=== PATIENT | male | born 1970 | race Two or more races ===

== ENCOUNTER → 2023-12-29 | Outpatient (CLI) | payer OTHER | END | disposition home or self-care (01) | LOC: SHCH 11:01 | PROVIDERS: ATTEND Student in an Organized Health Care Education/Training Program | DX: R00.2 Palpitations (principal) | CPT/HCPCS: 93306 ==

== ENCOUNTER → 2024-02-09 | Outpatient (CLI) | payer OTHER ==
[~2024-02-09] MED LIST: IOHEXOL 350 MG/ML 100ML INFUS..BTL IV ONE; metoPROLOL tartRATE 1 MG/ML 5ML VIAL IV ONE
== END | disposition home or self-care (01) ==
LOC: RAH 13:28 → EEVIPCON 13:28
PROVIDERS: ATTEND Student in an Organized Health Care Education/Training Program
DX: I25.10 Atherosclerotic heart disease of native coronary artery without angina pectoris (principal); I10 Essential (primary) hypertension; R07.9 Chest pain, unspecified
CPT/HCPCS: 75574; J3490; Q9967

== ENCOUNTER 2024-04-13 06:13 | Day surgery (SDC) | payer OTHER ==
[2024-04-10 14:36] VITALS: BP 123/97; PULSE 64; RESP 18; TEMP 98.1
[2024-04-10 14:57] LABS: BASOPHILS # (AUTO) 0.09 K/uL (0.00-0.20); BASOPHILS % (AUTO) 1.3 % (0.0-5.0); EOSINOPHILS # (AUTO) 0.11 K/uL (0.00-0.70); EOSINOPHILS % (AUTO) 1.6 % (0.0-8.0); IMMATURE GRANULOCYTE ABSOLUTE 0.03 K/uL (0-1); LYMPHOCYTES # (AUTO) 2.8 K/uL (1.0-4.8); LYMPHOCYTES % (AUTO) 40.8 % (21.0-51.0); MEAN CORPUSCULAR HEMOGLOBIN 30.5 pg (27.0-33.0); MEAN CORPUSCULAR HGB CONC 33.8 g/dL (32.0-36.0); MEAN CORPUSCULAR VOLUME 90.2 fL (79-99); MONOCYTES # (AUTO) 0.8 K/uL (0.1-1.0); MONOCYTES % (AUTO) 11.7 % (3.0-13.0); NEUTROPHILS # (AUTO) 3.1 K/uL (1.8-7.7); NEUTROPHILS % (AUTO) 44.2 % (40.0-77.0); PLATELET COUNT (AUTO) 253 K/uL (130-400); RED BLOOD CELL COUNT(AUTO) 5.21 MIL/uL (4.50-6.20); RED CELL DISTRIBUTION WIDTH 12.5 % (11.0-15.5); WHITE BLOOD COUNT (AUTO) 6.9 K/uL (4.8-10.8)
[2024-04-10 15:04] LABS: CREATININE 1.2 mg/dL (0.5-1.3); POTASSIUM 4.9 mmol/L (3.5-5.1)
[2024-04-10 15:08] LABS: INR 0.94 (0.85-1.15); PROTHROMBIN TIME 10.6 SEC (9.6-11.6)
[2024-04-10 15:09] LABS: PARTIAL THROMBOPLASTIN TIME 28.5 SEC (26.3-35.5)
--- NOTE | 2024-04-10 15:13 | HMCIMG ---
CHEST 1VW REASON: PRE OP COMPARISON: None. FINDINGS: Single view of the chest was obtained. Lungs are clear. Heart size is normal. There is no pulmonary vascular congestion. Mediastinum and bony thorax appear unremarkable. IMPRESSION: 1. Normal single view chest x-ray.
[2024-04-10 15:28] LABS: B-TYPE NATRIURETIC PEPTIDE 15 pg/mL (0-100)
--- NOTE | 2024-04-11 05:06 | EKG ---
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
[2024-04-13] VITALS (10 sets, daily range): BP systolic 119–142; BP diastolic 72–90; PULSE 54–77; RESP 14–16; TEMP 98–98.4
[~2024-04-13] VITALS: Ht 180.3 cm; Wt 91.6 kg
[~2024-04-13 06:13] MED LIST changes: +ASPI-1443 PO; -IOHEXOL 350 MG/ML 100ML INFUS..BTL IV ONE; -metoPROLOL tartRATE 1 MG/ML 5ML VIAL IV ONE
[2024-04-13 07:23] LABS: APPEARANCE,URINE CLEAR (CLEAR); BILIRUBIN,URINE NEGATIVE (NEGATIVE); COLOR,URINE LIGHT-YELLOW (YELLOW); GLUCOSE, URINE (UA) NEGATIVE (NEGATIVE); KETONES,URINE NEGATIVE (NEGATIVE); LEUKOCYTE ESTERASE ,URINE NEGATIVE Leu/uL (NEGATIVE); NITRATE,URINE NEGATIVE (NEGATIVE); OCCULT BLOOD,URINE NEGATIVE (NEGATIVE); PROTEIN,URINE 10 mg/dL (NEGATIVE); UROBILINOGEN,URINE 0.2 mg/dL (0.2-1.0)
[2024-04-13 07:25] LABS: ADD UA MICROSCOPIC YES
[2024-04-13 08:01] LABS: MUCUS,URINE RARE LPF (None Seen); RBC,URINE 0-1 /HPF (0-1); SQUAMOUS EPITHELIAL CELL,UR RARE /HPF (0-2); WBC,URINE 0-1 /HPF (0-1)
[2024-04-13] MEDS: 0.9%NACL 1000ML 1,000 ML IV SCH (08:47)
[2024-04-13] MEDS ORDERED: IOHEXOL-350 75 ML VIAL IV ONE (09:19)
[2024-04-13] MEDS ORDERED: HEParin 10,000 UNIT/10ML (1,000 UNIT/ML) VIAL ONE (09:19)
[2024-04-13] MEDS ORDERED: MIDAZOLAM HCL 1 MG/ML 2ML VIAL ONE ×2 (09:19→09:47)
[2024-04-13] MEDS ORDERED: LIDOCAINE HCL 400MG/20ML VIAL ONE (09:19)
[2024-04-13] MEDS ORDERED: FENTanyl CITRate PF 50 MCG/1 ML 2ML VIAL ONE (09:19)
[2024-04-13] MEDS ORDERED: VERAPAMIL HCL 2.5 MG/ML VIAL ONE (09:19)
[2024-04-13] MEDS ORDERED: NITROGLYCERIN 50MG VIAL ONE (09:20)
[2024-04-13] MEDS ORDERED: HEParin-NS 1,000 UNIT/500 ML 1,000 ML IV ONE (09:20)
[2024-04-13] MEDS ORDERED: cloPIDOgrel 300MG TAB ONE (10:16)
[2024-04-13] MEDS ORDERED: ASPIRIN 81MG CHEW TAB ONE (10:16)
[2024-04-13] MEDS ORDERED: EPTIFIBATIDE 2 MG/ML 10 ML VIAL IVP ONE (10:19)
[2024-04-13] MEDS ORDERED: EPTIFIBATIDE 75MG/100ML BOTTLE 100 ML IV ONE (10:19)
[2024-04-13] MEDS ORDERED: HEParin-NS 1,000 UNIT/500 ML 500 ML IV ONE (10:29)
[2024-04-13] MEDS ORDERED: ATROPINE 1MG SYG IVP ONE (10:57)
[2024-04-13] MEDS ORDERED: GLUCAGON 1MG KIT 1 MG ML IM PRN (11:30)
[2024-04-13] MEDS ORDERED: DEXTROSE 50%-WATER 50 ML DISP.SYRIN IV PRN (11:30)
[2024-04-13] MEDS ORDERED: 0.9%NACL 1000ML 1,000 ML IV SCH (11:30)
--- NOTE | 2024-04-13 11:41 | PRN ---
PROCEDURE REPORT DATE OF PROCEDURE: Apr 13, [address] TECHNOLOGIST: [ Connie burch MD] PROCEDURE PERFORMED: Conscious sedation Ultrasound guided right radial artery access Selective left coronary artery angiogram Selective right coronary artery angiogram Left heart catheterization IVUS of the LAD and left main IFR of the LAD Status post successful IVUS/IFR guided PTCA/PCI of the proximal LAD (3 x 26 mm chayo Newcomb drug-eluting stent, postdilated to 3.5 mm) Status post successful PTCA/PCI of the prox to mid left circumflex (2.75 x 30 mm chayo Newcomb drug-eluting stent) TR band 13 stefanie over right radial artery INDICATION: Abnormal coronary CTA DESCRIPTION OF PROCEDURE: After informed consent was obtained, the patient was prepped and draped in the usual sterile fashion. A 6 Scottish arterial sheath was inserted in the right radial artery using ultrasound guidance with first pass wall puncture. The arterial sheath was aspirated and flushed. A 6 Scottish JL 3.5 was then advanced to the ascending aorta over an exchange length J-tip guidewire, was aspirated and flushed, and was used for selective coronary angiograms in multiple obliquities. A JR-4 was advanced in a similar fashion to the ascending aorta over the J-tipped guidewire and was used for selective right coronary angiograms in multiple oblique views with findings as outlined below. The JR-4 catheter ad vanced into the LV and pressures were obtained with a pull-back across the aortic valve. Following review of all the angiographic images decision was made to further interrogate patient's moderate to severe proximal LAD lesion as well as revascularization of his left circumflex. We exchanged the diagnostic catheters for a six Scottish XB three guide catheter which was used to select engage the left main coronary [place]. [place] [address] units of [place] heparin, 324 mg of aspirin and 300 mg of Plavix along with double bolus of IV Integrilin infusion for the procedure. Following therapeutic ACT we advanced an IFR wire into the distal LAD under fluoroscopic guidance. We then normalized and proceeded with IFR hemodynamic assessment of the proximal LAD which was 0.8 x 2 with no drift. We then removed the IFR wire and advanced a 014 in [place] into the distal LAD under fluoroscopic guidance. We then pre-dilated the proximal LAD using a 2.5 x 20 mm compliant balloon to nominal pressures. We then proceeded with IVUS imaging of the LAD and left main to delineate anatomy and measurements. We then proceeded with PCI of the proximal LAD using a 3 x 26 mm chayo Newcomb drug-eluting stent which was deployed to nominal pressures overlapping his prior left main stent. We then post dilated the stent using a 3.5 x 20 mm noncompliant balloon to 14 and 20 STEFANIE respectively. Repeat angiogr aphic image revealed uatsdin of ALEJANDRA three flow with no dissections or perforations. We then redirected our attention to the left circumflex lesion. We retracted the [place] guidewire from the LAD and redirected into the left circumflex distally under fluoroscopic guidance. We then pre-dilated the prox to mid left circumflex using a 2.5 x 20 mm compliant balloon to nominal pressures. We then deployed a 2.75 x 30 mm chayo Newcomb drug-eluting stent to nominal pressures from the prox to mid left circumflex. We then post dilated the stent using a 2.75 x 30 mm noncompliant balloon to 12 STEFANIE. Final angiographic image revealed uatsdin of ALEJANDRA three flow with no dissections or perforations. At this time all wires and catheters removed from the body and A TR band was placed over right radial artery. 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 Gives rise to LCx and LAD and there is a patent stent extending from the left main to the ostial LAD. The left main stent jails the left circumflex LEFT ANTERIOR DESCENDING: Large vessel giving rise to two Diagonal branches. Patent ostial stent followed by an 80% proximal LAD stenosis (IFR 0.88 x 2 with no drift). Diagonal one is large and widely patent LEFT CIRCUMFLEX: Large and gives rise to two OM branches. 80% proximal and 95% mid stenosis. OM1 and OM2 are small with diffusely calcified. OM3 is large and patent RIGHT CORONARY ARTERY: Large, dominant vessel giving rise to PDA and PL branches. Mild diffuse (20- 30%) nonobstructive stenosis. HEMOSTASIS: TR band 12 stefanie over right radial artery INTERVENTIONS: Status post successful IVUS/IFR guided PTCA/PCI of the proximal LAD (3 x 26 mm chayo Newcomb drug-eluting stent, postdilated to 3.5 mm) Status post successful PTCA/PCI of the prox to mid left circumflex (2.75 x 30 mm chayo Newcomb drug-eluting stent) COMPLICATIONS: None FINDINGS: Normal coronary anatomy and mild non-obstructive CAD. ESTIMATED BLOOD LOSS: 5 cc RECOMMENDATIONS/INSTRUCTIONS: Aggressive risk factor modification. DAPT (aspirin 81 mg daily/Plavix 75 mg daily) for a total of six months in addition to high-intensity statin therapy We will defer beta-baldev as patient is intolerant due to bradycardia Follow up in Cardiology Clinic in 1-2 weeks post discharge CONTRAST DELIVERED TO PATIENT (mL): 200cc CONNIE Gómez MD, MD Apr 13, 2024 11:41
[2024-04-13] MEDS ORDERED: CLOP-31 PO (13:40)
[2024-04-13] MEDS ORDERED: ATOR40TA69 PO (13:41)
[2024-04-13] MEDS: acetaMINOPHEN 325 MG TAB PO ONE (14:23)
--- NOTE | 2024-04-13 14:31 | NUR ---
Remains stable with VS wnl. SR SB. TR Band 9 mls air removed. No evidence of bleeding or hematoma. Medicated with Tylenol for dull muscle aches. Resting quietly. Guards x 2 at bedside. Reported off in full to JAMIE Martins
--- NOTE | 2024-04-13 15:12 | NUR ---
DISCHARGE INSTRUCTIONS GIVEN TO INTERMEDIATE FACILITY KENNEDI AYALA. ALSO, DISCHARGE INSTRUCTIONS GIVEN TO PT VIA [employer] CALLED BY GUARDS.
[2024-04-14] MEDS ORDERED: cloPIDOgrel 75MG TAB PO SCH (09:00)
[2024-04-14] MEDS ORDERED: ASPIRIN 81MG CHEW TAB PO SCH (09:00)
== END 2024-04-13 15:20 | disposition home or self-care (01) ==
LOC: DAH 06:13 → EEVIPCON 10:00 → DAH 15:20
PROVIDERS: ATTEND Student in an Organized Health Care Education/Training Program
DX: R07.9 Chest pain, unspecified (principal); R93.1 Abnormal findings on diagnostic imaging of heart and coronary circulation; I25.118 Atherosclerotic heart disease of native coronary artery with other forms of angina pectoris; I11.9 Hypertensive heart disease without heart failure; E78.5 Hyperlipidemia, unspecified; I25.2 Old myocardial infarction; Z87.891 Personal history of nicotine dependence; Z79.82 Long term (current) use of aspirin; Z79.899 Other long term (current) drug therapy
CPT/HCPCS: 80048; 83880; 85025; 85610; 85730; 36415 ×2; 71045; 93005; 93458; 92978; 92979; 93571; 85347; 81001; A6260; C9600 ×2; C1769 ×4; C1725 ×3; C1874 ×2; C1887 ×2; C1894; C1753; J3010; J3490 ×3; J1644 ×3; J2250 ×2; J1327 ×2; Q9967; A4215; A4222; A4221; A4663; A4216; A4606; A4223 ×3; 96360; 96361; 99156; 99157; J0461